=== PATIENT | female | born 1980 | race Caucasian/White ===

== ENCOUNTER → 2018-09-01 | Outpatient (REF) | payer OTHER ==
[~2018-09-01] MED LIST: ACE3 PO; IBU600 PO; IBU800 PO; PREN-67 PO; PREN-85 PO
[2018-09-01 11:42] LABS: PLATELET COUNT, AUTOMATED 260 K/uL (150-450)
== END ==
LOC: ZZSTITCHES 11:27
PROVIDERS: ATTEND Physician Assistant
DX: R53.83 Other fatigue (principal)
CPT/HCPCS: 82040; 82247; 82310; 82374; 82435; 82565; 82947; 84075; 84132; 84155; 84295; 84450; 84460; 84520; 85025

== ENCOUNTER → 2018-09-03 | Outpatient (CLI) | payer OTHER ==
[~2018-09-03] MED LIST changes: +DEXTROSE 5%(*) 100 ML BAG 100 ML IVPB PRN; +FLUC200T56 PO; +KETOROLAC 30 MG/ML VIAL IVP ONE; +LIDOCAINE/SOD BICARB 8.4% SYR ID PRN; +NS(*) 0.9% 100 ML BAG 100 ML IVPB PRN; +NS(*) 0.9% 1000 ML BAG 1,000 ML IV ONE; +OXYC-865 PO
[2018-09-03 12:59] VITALS: BP 121/74
[2018-09-03 14:31] VITALS: BP 113/77
== END ==
LOC: SPU 11:44
PROVIDERS: ATTEND Nurse Practitioner Primary Care
DX: E86.0 Dehydration (principal); B34.9 Viral infection, unspecified
CPT/HCPCS: 96361; 96374; J1885; J7030